=== PATIENT | male | born 1995 | race Caucasian/White ===

== ENCOUNTER → 2020-05-17 09:33 | Outpatient (CLI) | payer OTHER, SELFPAY ==
[2020-05-17 10:30] LABS: COVID19 -Nasal RAPID Negative (Negative)
[2020-05-17 10:41] LABS: Influenza A - CEPHEID Flu A NEGATIVE (NEGATIVE); Influenza B - CEPHEID Flu B NEGATIVE (NEGATIVE)
== END ==
PROVIDERS: Visit Provider Physician Assistant
DX: J02.9 Acute pharyngitis, unspecified (principal); R05 Cough; R51.9 Headache, unspecified; R68.83 Chills (without fever)
CPT/HCPCS: 87502; 87635

== ENCOUNTER → 2022-04-28 09:31 | Outpatient (CLI) | payer OTHER, SELFPAY ==
[2022-04-28 10:27] LABS: Influenza A - CEPHEID Flu A POSITIVE (NEGATIVE); Influenza B - CEPHEID Flu B NEGATIVE (NEGATIVE); Respiratory Syncytial Virus Negative (Negative)
[2022-04-28 10:30] LABS: COVID-19 CEPHEID 4-PLEX PCR Negative (Negative)
== END ==
PROVIDERS: Visit Provider Registered Nurse
DX: R05.1 Acute cough (principal)
CPT/HCPCS: 0241U

== ENCOUNTER → 2022-04-28 09:55 | Outpatient (CLI) | payer OTHER, SELFPAY ==
--- NOTE | 2022-04-28 09:59 | DI.RAD.S_ITS ---
PROCEDURE: XR CHEST 2V INDICATIONS: Shortness of breath TECHNIQUE: 2 views of the chest were acquired. COMPARISON: None. FINDINGS: Surgical changes and devices: None. Lungs and pleura: Lungs are clear. No pleural effusions or pneumothorax. Mediastinum: Mediastinal contours are normal. Heart size is normal. Bones and chest wall: No suspicious bony abnormalities. Soft tissues appear unremarkable. IMPRESSION: No acute cardiopulmonary pathology. Dictated by: Brayan Minor M.D. on 04/28/2022 at 10:40 Approved by: Brayan Minor M.D. on 04/28/2022 at 10:40
== END ==
PROVIDERS: Referring Provider Registered Nurse; Visit Provider Registered Nurse
DX: R06.02 Shortness of breath (principal); R05.1 Acute cough
CPT/HCPCS: 0241U; 71046

== ENCOUNTER 2022-08-22 19:56 | Emergency (ER) | payer OTHER, SELFPAY ==
--- NOTE | 2022-08-22 20:03 | DI.RAD.S_ITS ---
PROCEDURE: XR CHEST 1V INDICATIONS: chest pain TECHNIQUE: One view of the chest was acquired. COMPARISON: [facility], CR, XR CHEST 2V, 04/28/2022, 10:02. FINDINGS: Surgical changes and devices: None. Lungs and pleura: Lungs are clear considering reduced inspiratory volume somewhat greater on the right than the left. No pleural effusions or pneumothorax. Mediastinum: Mediastinal contours appear normal. Heart size is normal. Bones and chest wall: No suspicious bony lesions. Overlying soft tissues appear unremarkable. IMPRESSION: Reduced inspiratory volume, no acute disease when this is taken into account. Dictated by: Miguelangel Casas M.D. on 08/22/2022 at 20:46 Approved by: Miguelangel Casas M.D. on 08/22/2022 at 20:47
[2022-08-22 20:04] VITALS: PULSE 102; O2SAT 97
[2022-08-22 20:05] VITALS: BP 165/96; PULSE 95; RESP 17; TEMP 36.9; O2SAT 97; BMI 38.7
[2022-08-22 20:06] VITALS: BP 130/81; PULSE 95; RESP 8; O2SAT 96
--- NOTE | 2022-08-22 20:43 | ED.CHESTPAIN ---
HPI - Chest Pain General Chief Complaint: Chest Pain Stated Complaint: Chest pain Time Seen by Provider: 08/22/22 20:03 Source: patient and family Mode of arrival: Ambulatory Limitations: no limitations History of Present Illness HPI narrative: Patient is an otherwise healthy 26-year-old male who is here for evaluation of several hours of sharp left-sided chest discomfort. He states that he was feeling somewhat anxious at the onset of the symptoms. He has had symptoms like this in the past but not as intense. States it is not worse with palpation or movement. Does not have any back pain. Some discomfort in his left arm. No problems breathing. No nausea vomiting. Has not tried anything for symptoms prior to arrival. It has had periods of time over the past several hours would in his been worse than others but it has been consistent since the onset. Does not smoke. No family history of coronary artery disease. Related Data Home Medications Medication Instructions Recorded Confirmed No Known Home Medications 05/17/20 04/28/22 Allergies Allergy/AdvReac Type Severity Reaction Status Date / Time No Known Allergies Allergy Uncoded 04/28/22 09:30 Review of Systems Constitutional Constitutional: Reports system reviewed and no additional complaints, except as documented Cardiovascular Cardiovascular: Reports system reviewed and no additional complaints, except as documented Respiratory Respiratory: Reports system reviewed and no additional complaints, except as documented Gastrointestinal Gastrointestinal: Reports system reviewed and no additional complaints, except as documented Musculoskeletal Musculoskeletal: Reports system reviewed and no additional complaints, except as documented Integumentary/Breasts Skin/Breast: Reports system reviewed and no additional complaints, except as documented Neurologic Neurologic: Reports system reviewed and no additional complaints, except as documented Hematologic/Lymphatic On Anticoagulants: No Patient History Medical History No active medical problems Social History Smoking Status: Never smoker Smoking Status: Never smoker alcohol intake frequency: holidays/special occasions only Substance Use Type: does not use Exam Initial Vital Signs Initial Vital Signs: Vital Signs Pulse Rate 102 H 08/22/22 20:04 Pulse Oximetry 97 08/22/22 20:04 Const General: cooperative, comfortable and No ill appearing HENMT Head: normal to inspection and normocephalic Resp Effort & Inspection: normal respiratory effort Auscultation: clear to auscultation bilaterally Cardio Rate: regular rate Rhythm: regular rhythm GI Inspection: normal to inspection and non-distended Skin General: no rashes or lesions noted Neuro General: patient alert, patient awake and moves all extremities Extrem General: capillary refill normal Scores HEART Score Heart Score history: Slightly Suspicious Heart Score EKG: Normal Heart Score Age: < 45 years old Heart Score risk factors: No known risk factors Heart Score troponin: < or = to normal limit Heart Score Total: 0 PERC Score Age greater than or equal to 50 years: No Heart rate greater than or equal to 100 bpm: No Room Air O2 Sat less than 95%: No Unilateral leg swelling: No Recent trauma or surgery: No Hemoptysis: No Prior PE or DVT: No Hormone Use: No Total PERC Score: 0 Course Orders Ordered: ED Orders 08/22/22 20:03 XR chest 1V Stat EKG-12 Lead Stat 08/22/22 20:45 Basic Metabolic Panel Stat Complete Blood Count AUTO DIFF Stat Troponin & CK Cardiac Panel Stat Vital Signs Vital signs: Vital Signs - 8 hr 08/22/22 20:05 08/22/22 20:04 08/22/22 20:06 Temperature 98.5 F Pulse Rate 95 H 102 H 95 H Respiratory Rate 17 8 L Blood Pressure 165/96 H Pulse Oximetry 97 97 96 Oxygen Delivery Method Room Air 08/22/22 20:06 08/22/22 21:43 Temperature Pulse Rate 76 Respiratory Rate 18 Blood Pressure 130/81 124/72 Pulse Oximetry 97 Oxygen Delivery Method Room Air MDM - Chest Pain Lab Data Attestation: I reviewed the patient's lab results. 08/22/22 20:45 08/22/22 20:45 Labs: Lab Results 08/22/22 08/22/22 Range/Units 20:45 20:45 WBC 8.3 (4.5-11.0) X10^3/uL RBC 5.13 (4.5-5.9) X10^6/uL Hgb 14.7 (13.5-17.5) g/dL Hct 41.9 (41-53) % MCV 81.8 (80-100) fL MCH 28.6 (26-34) PG MCHC 35.0 (30-36) % RDW 12.9 (11.6-14.8) % Plt Count 251 (150-400) X10^3/uL Neut % (Auto) 65.0 (50-75) % Lymph % (Auto) 27.2 (25-40) % [place] % (Auto) 6.5 (3-14) % Eos % (Auto) 0.7 L (2-4) % Baso % (Auto) 0.6 (0-2) % Neut # (Auto) 5400 (8723-1621) /uL Lymph # (Auto) 2300 (0979-8649) /uL [place] # (Auto) 500 (0-900) /uL Eos # (Auto) 100 (0-450) /uL Baso # (Auto) 100 (0-100) /uL Sodium 138 (137-145) mmol/L Potassium 4.0 (3.4-5.1) mmol/L Chloride 103 (98-107) mmol/L Carbon Dioxide 25 (22-32) mmol/L BUN 15 (9-20) mg/dL Creatinine 0.79 (0.66-1.25) mg/dL Estimated GFR > 60 (>60) mL/min BUN/Creatinine Ratio 19.0 (6-22) Glucose 94 (70-100) mg/dL Calcium 9.1 (8.4-10.2) mg/dL Total Creatine Kinase 158 (55-170) U/L CK-MB (CK-2) 0.27 (<2.37) ng/mL CK-MB (CK-2) Rel Index 0.2 L (1.5-5.0) % Troponin I < 0.012 (0.01-0.034) ng/mL Imaging Data Chest x-ray: My Impression: PROCEDURE:? XR CHEST 1V ? INDICATIONS:? chest pain ? TECHNIQUE:? One view of the chest was acquired.? ? COMPARISON:? [facility], CR, XR CHEST 2V, 04/28/2022, 10:02. ? FINDINGS:? ? Surgical changes and devices:? None.? ? Lungs and pleura:? Lungs are clear considering reduced inspiratory volume somewhat greater on the right than the left.? No pleural effusions or pneumothorax.? ? Mediastinum:? Mediastinal contours appear normal.? Heart size is normal.? ? Bones and chest wall:? No suspicious bony lesions.? Overlying soft tissues appear unremarkable.? ? IMPRESSION:? Reduced inspiratory volume, no acute disease when this is taken into account. ECG Data Attestation: I personally reviewed and interpreted this ECG as follows: Interpretation: Sinus rhythm Ventricular rate 88 Normal axis Normal QRS Normal QTC No ST T wave changes MDM Narrative Medical decision making narrative: Chest x-ray shows no acute pathology. EKG is unremarkable troponin is negative. PERC score 0. Low risk heart score. Unsure the exact etiology but I do have low suspicion that this is cardiac in origin. Patient states that he was feeling somewhat anxious at the onset of the symptoms this very well could be anxiety. Randall discussed the possibility such as GI etiology. Hold on further workup for now and have him contact his primary provider for a follow-up. He was given return precautions. He expressed understanding and agreement. Discharge Plan Departure Patient Disposition: Home Clinical Impression: Atypical chest pain Instructions: DI for Atypical Chest Pain Activity Restrictions/Additional Instructions: I do recommend that you start taking a daily GI medicines such as Pepcid/famotidine. This can be purchased over the counter. Recommend that you take it daily for the next 10-14 days. If your symptoms worsen please return to the emergency department. Contact your primary doctor for follow-up. Prescriptions: No Action No Known Home Medications Stand Alone Forms: Patient Portal/API
[2022-08-22 21:03] LABS: Add Manual Diff / Slide Review NO; Basophils Absolute Auto 100 /uL (0-100); Basophils Percent Auto 0.6 % (0-2); Eosinophils Absolute Auto 100 /uL (0-450); Eosinophils Percent Auto 0.7 % (2-4); Hematocrit 41.9 % (41-53); Hemoglobin 14.7 g/dL (13.5-17.5); Lymphocytes Absolute Auto 2300 /uL (1100-4500); Lymphocytes Percent Auto 27.2 % (25-40); Mean Corpuscular Hemoglobin 28.6 PG (26-34); Mean Corpuscular Volume 81.8 fL (80-100); Monocytes Absolute Auto 500 /uL (0-900); Monocytes Percent Auto 6.5 % (3-14); Neutrophils Absolute Auto 5400 /uL (1500-7000); Platelet Count 251 X10^3/uL (150-400); Red Blood Cell Count 5.13 X10^6/uL (4.5-5.9); Red Cell Distribution Width 12.9 % (11.6-14.8); White Blood Cell Count 8.3 X10^3/uL (4.5-11.0)
[2022-08-22 21:08] LABS: Blood Urea Nitrogen 15 mg/dL (9-20); Calcium 9.1 mg/dL (8.4-10.2); Carbon Dioxide 25 mmol/L (22-32); Chloride 103 mmol/L (98-107); Creatine Kinase 158 U/L (55-170); Estimated Glomerular Filt Rate > 60 mL/min (>60); Glucose 94 mg/dL (70-100); Sodium 138 mmol/L (137-145)
[2022-08-22 21:09] LABS: HEMOLYSIS 65 (0-50)
[2022-08-22 21:20] LABS: Troponin I < 0.012 ng/mL (0.01-0.034)
[2022-08-22 21:23] LABS: CKMB % Relative Index 0.2 % (1.5-5.0); Creatine Kinase MB 0.27 ng/mL (<2.37)
[2022-08-22 21:43] VITALS: BP 124/72; PULSE 76; RESP 18; O2SAT 97
== END 2022-08-22 21:42 | disposition home or self-care (01) ==
PROVIDERS: Emergency Provider Emergency Medicine
DX: R07.89 Other chest pain (principal)
CPT/HCPCS: 36415; 71045; 80048; 82550; 82553; 84484; 85025; 93005; 99283; 99284

== ENCOUNTER 2023-09-17 14:58 | Emergency (ER) | payer OTHER, SELFPAY ==
[2023-09-17 15:02] VITALS: BP 139/87; PULSE 88; RESP 16; TEMP 36.8; O2SAT 98; BMI 38.7
--- NOTE | 2023-09-17 15:09 | DI.US.S_ITS ---
PROCEDURE: US SCROTUM INDICATIONS: pain, swelling, ecchymosis TECHNIQUE: Real-time scanning was performed of the scrotum and testicles, with image documentation. Color and pulse Doppler interrogation was performed of both testicles. COMPARISON: None. FINDINGS: Right: Testicle is normal in size at 5.4 x 3.1 x 2.4 cm, and homogenous in echotexture. Epididymis is normal in overall size and morphology. No hydrocele or varicoceles. Overlying scrotal skin is normal in thickness. Left: Testicle is normal in size at 4.9 x 3.2 x 2.6 cm, and homogeneous in echotexture. Epididymis is normal in overall size . Multiple small left epididymal head cysts are noted measures up to 4 mm in size. No hydrocele or varicoceles. Overlying scrotal skin is normal in thickness. Doppler: Color and pulse Doppler demonstrate normal and symmetric arterial flow in both testicles. Increased vascularity within left epididymis is seen. Adjacent left scrotal soft tissue edema along the spermatic cord is also seen. IMPRESSION: 1. Finding is suggestive of left epididymitis. 2. No evidence of testicular torsion. No significant hydroceles or varicoceles. Normal appearing right epididymis. Dictated by: Brayan Minor M.D. on 09/17/2023 at 16:04 Approved by: Brayan Minor M.D. on 09/17/2023 at 16:07
--- NOTE | 2023-09-17 15:20 | ED.MALEGU ---
HPI - Male Genitourinary General Chief complaint: Urogenital-Male Stated complaint: possible clot in scrotum, sx last week sent by [facility] Time Seen by Provider: 09/17/23 15:09 Source: patient Mode of arrival: Family Vehicle Limitations: no limitations History of Present Illness HPI Narrative: This is 27-year-old healthy male who had vasectomy proximally week ago. Patient had it with Dr. Cheng in [place]. Patient states he has been doing well the past week had just stopped precautions and started to be more active. Had increasing swelling redness of the left testicle going up a little bit into the groin. He denies fevers no nausea or vomiting states pain goes up a little bit suprapubically but not farther into the abdomen. Does not little bit of left flank pain. Denies any dysuria urgency or frequency. States right testicle is not painful. Patient did notice a little bit of redness of the skin. States no medical issues. No daily medications. No other prior surgeries. No tobacco, alcohol or recreational drugs. Related Data Previous Rx's Medication Instructions Recorded doxycycline hyclate 100 mg tablet 100 mg PO BID #20 tabs 09/17/23 ibuprofen 800 mg tablet 800 mg PO TID PRN pain #30 tabs 09/17/23 Allergies Allergy/AdvReac Type Severity Reaction Status Date / Time No Known Allergies Allergy Uncoded 09/17/23 14:35 Review of Systems Review of Systems ROS Unobtainable: All systems reviewed & are unremarkable except as noted in HPI and below Patient History Medical History No active medical problems Social History Smoking Status: Never smoker Smoking Status: Never smoker alcohol intake frequency: holidays/special occasions only Substance Use Type: does not use Exam Narrative Exam Narrative: GENERAL: Alert and oriented x three, well-appearing male in mild distress. HEENT: Head normocephalic, atraumatic, EOMI, pupils reactive, face symmetric, moist mucous membranes NECK: Supple, full range of motion CARDIOVASCULAR: Regular rate and rhythm without murmurs, rubs or gallops. RESPIRATORY: Breath sounds equal bilaterally, no wheezes rales or rhonchi. ABDOMEN: Soft, nontender. Normoactive bowel sounds all 4 quadrants. No guarding or rebound, rigidity, no mass : No CVA tenderness. Male: normal external examination except for some mild swelling bilateral testicles. Patient has a very mild ecchymosis, no penile discharge or lesions, testicles are tender in the left, cremasteric reflex intact, no inguinal hernias noted. EXTREMITIES: Normal range of motion, no clubbing or edema. Neurovascularly intact NEUROLOGICAL: Cranial nerves II through XII grossly intact. Moving all extremities SKIN: Warm, dry, no petechiae, no rashes or lesions. Initial Vital Signs Initial Vital Signs: Vital Signs Temperature 98.2 F 09/17/23 15:02 Pulse Rate 88 09/17/23 15:02 Respiratory Rate 16 09/17/23 15:02 Blood Pressure 139/87 09/17/23 15:02 Pulse Oximetry 98 09/17/23 15:02 Oxygen Delivery Method Room Air 09/17/23 15:02 Course Orders Ordered: Discontinued Medications Ceftriaxone Sodium (Ceftriaxone 2,000 Mg Vial) 1,000 mg IM NOW ONE Stop: 09/17/23 17:45 Last Admin: 09/17/23 18:19 Dose: 1,000 mg Documented By: ANTOINETTE Doxycycline Hyclate (Doxycycline Hyclate 100 Mg Tablet) 100 mg PO NOW ONE Stop: 09/17/23 17:45 Last Admin: 09/17/23 18:13 Dose: 100 mg Documented By: ANTOINETTE Ibuprofen (Ibuprofen 400 Mg Tablet) 800 mg PO NOW ONE Stop: 09/17/23 17:41 Last Admin: 09/17/23 18:13 Dose: 800 mg Documented By: ANTOINETTE Vital Signs Vital signs: Vital Signs - 8 hr 09/17/23 15:02 Temperature 98.2 F Pulse Rate 88 Respiratory Rate 16 Blood Pressure 139/87 Pulse Oximetry 98 Oxygen Delivery Method Room Air MDM - Male Genitourinary Lab Data Labs: Urine Dip Bedside Urine Glucose Negative Bedside Urine Bilirubin - Negative Bedside Urine Ketone - Negative Urine Specific [place] 1.025 Bedside Urine Occult Blood - Negative Bedside Urine pH 6.0 Bedside Urine Protein - Negative Bedside Urine Urobilinogen - Negative Bedside Urine Nitrite - Negative Bedside Urine Leukocytes - Negative Esterase Imaging Data scrotum US: Radiologist's Impression: [address] [address] Ultrasound Report Signed Patient: Eduar Villagomez MR#: [id number] : 1995 Acct:[id number] Age/Sex: 27 / M Date of Service: 09/17/23 Loc: ED Accession Number: [id number] Procedure: US scrotum Ordering Provider: Peter Aldana D.O. PROCEDURE: US SCROTUM INDICATIONS: pain, swelling, ecchymosis TECHNIQUE: Real-time scanning was performed of the scrotum and testicles, with image documentation. Color and pulse Doppler interrogation was performed of both testicles. COMPARISON: None. FINDINGS: Right: Testicle is normal in size at 5.4 x 3.1 x 2.4 cm, and homogenous in echotexture. Epididymis is normal in overall size and morphology. No hydrocele or varicoceles. Overlying scrotal skin is normal in thickness. Left: Testicle is normal in size at 4.9 x 3.2 x 2.6 cm, and homogeneous in echotexture. Epididymis is normal in overall size . Multiple small left epididymal head cysts are noted measures up to 4 mm in size. No hydrocele or varicoceles. Overlying scrotal skin is normal in thickness. Doppler: Color and pulse Doppler demonstrate normal and symmetric arterial flow in both testicles. Increased vascularity within left epididymis is seen. Adjacent left scrotal soft tissue edema along the spermatic cord is also seen. IMPRESSION: 1. Finding is suggestive of left epididymitis. 2. No evidence of testicular torsion. No significant hydroceles or varicoceles. Normal appearing right epididymis. Dictated by: Brayan Minor M.D. on 09/17/2023 at 16:04 Approved by: Brayan Minor M.D. on 09/17/2023 at 16:07 [facility] Narrative Medical decision making narrative: 27-year-old male with recent vasectomy with increased left scrotal pain, patient has tenderness more in the left. Ultrasound was obtained shows changes most consistent with epididymitis, clear cellulitis on exam and no thickening of the skin on ultrasound. Point of care urine is negative. Urine was sent for culture. Patient covered with broad-spectrum antibiotics was given dose of, doxycycline discussed epididymitis can occur at any time but with recent surgery we will continue with something that has MRSA coverage. Discussed return precautions patient expresses understanding. He has returned to work did offer work note but he defers. Did ask for him to reach out to his urologist to let them know. Discharge Plan Departure Patient Disposition: Home Clinical Impression: Epididymitis Instructions: Epididymitis Activity Restrictions/Additional Instructions: Please let your urologist known that you have been diagnosed with epididymitis. Your ultrasound does show changes consistent with epididymitis.Your urine sample did not show any signs of infection but has been sent for culture. This takes a proximally 2-3 days and if shows any resistance to the antibiotics prescribed you would be contacted. Take antibiotics as prescribed. Take 1 tablet every 12 hours x7 days. You can take ibuprofen up to 800 mg every 8 hours and/or Tylenol up to a 1000 mg every 6 hours as needed. Prescription for antibiotics and ibuprofen sent to [facility] in [place]. Please return for fevers increasing pain, swelling, redness or new skin changes, vomiting, new abdominal back or flank or other new or concerning changes. Prescriptions: New ibuprofen 800 mg tablet 800 mg PO TID PRN (Reason: pain) Qty: 30 0RF doxycycline hyclate 100 mg tablet 100 mg PO BID Qty: 20 0RF Referrals: Miscellaneous,Doctor, MD [Primary Care Provider] - Stand Alone Forms: Patient Portal/API, Work Release Note
[2023-09-17] MEDS: DOXYCYCLINE HYCLATE 100 MG TABLET PO (18:13)
[2023-09-17] MEDS: IBUPROFEN 400 MG TABLET 800 MG PO (18:13)
[2023-09-17] MEDS: cefTRIAXone 2,000 MG VIAL 1000 MG IM (18:19)
[2023-09-17 18:22] VITALS: BP 133/90; PULSE 72; RESP 14; O2SAT 96
== END 2023-09-17 18:24 | disposition home or self-care (01) ==
PROVIDERS: Emergency Provider Emergency Medicine
DX: N45.1 Epididymitis (principal)
CPT/HCPCS: 76870; 81003; 87086; 93975; 96372; 99284; J0696